=== PATIENT | female | born 1980 | race Hispanic/Latino ===

== ENCOUNTER 2025-09-11 16:10 | Emergency (ER) | payer OTHER ==
[~2025-09-11] VITALS: Ht 157.5 cm; Wt 72.0 kg
[2025-09-11 18:30] VITALS: BP 141/89
== END 2025-09-11 18:30 | disposition left against medical advice (07) ==
LOC: ED 16:10
DX: Z53.21 Procedure and treatment not carried out due to patient leaving prior to being seen by health care provider (principal)